=== PATIENT | female | born 1940 | race Caucasian/White ===

== ENCOUNTER 2021-11-10 13:13 | Emergency (ER) | payer MEDICARE ==
[~2021-11-10] VITALS: Ht 154.9 cm; Wt 52.0 kg
[2021-11-10 18:40] VITALS: BP 129/60
== END 2021-11-10 18:40 | disposition home or self-care (01) ==
LOC: ED 13:13
PROC: 2W3CX1Z Immobilization of Right Lower Arm using Splint (ICD-10-PCS; principal; 2021-11-10)
DX: S52.501A Unspecified fracture of the lower end of right radius, initial encounter for closed fracture (principal); W01.0XXA Fall on same level from slipping, tripping and stumbling without subsequent striking against object, initial encounter; Y93.K1 Activity, walking an animal; Y92.007 Garden or yard of unspecified non-institutional (private) residence as the place of occurrence of the external cause